=== PATIENT | female | born 1950 | race Two or more races ===

== ENCOUNTER → 2024-03-21 | Outpatient (CLI) | payer MEDICARE ==
--- NOTE | 2024-03-21 09:42 | XR ---
EXAMINATION TYPE: XR ribs LT w pa chest xray DATE OF EXAM: 03/21/2024 COMPARISON: NONE HISTORY: Pain TECHNIQUE: Single view of the chest 4 views of the ribs are submitted. FINDINGS: The lungs are clear. No Evidence for pneumothorax. No evidence for focal contusion. Medi astinal structures are midline. Evaluation of the ribs fails to demonstrate evidence for displaced r ib fracture or secondary sign of rib fracture. IMPRESSION: Negative study [facility], , 03/21/2024 9:40 AM
== END | disposition home or self-care (01) ==
LOC: RADXRMAIN 09:13
PROVIDERS: ATTEND Surgery
DX: Z85.3 Personal history of malignant neoplasm of breast

== ENCOUNTER → 2024-04-03 | Outpatient (CLI) | payer MEDICARE ==
--- NOTE | 2024-04-03 15:23 | NM ---
EXAMINATION TYPE: NM bone scan whole body DATE OF EXAM: 04/03/2024 2:43 PM CLINICAL INDICATION:Unknown, 74 years old with history of Z85.3 Hx breast ca; COMPARISON: None TECHNIQUE: Intravenous administration 27.1 mCi Tc 99m MDP followed by multiple scintigraphic images o f the appendicular and axial skeleton. Small [id number] planar legs, and thorax images were also s ubmitted for review. Images acquired 3 hours post injection. FINDINGS: No abnormal uptake is identified within the appendicular or axial skeleton to suggest metastatic dise ase. Urinary artifact at the near the pelvis. Injection artifact in the right arm. There is increased uptake within the bilateral shoulder, sternoclavicular, and sacroiliac joints con sistent with degenerative changes. No other photopenic areas or areas of increased activity are ident ified. Physiologic radiotracer activity is demonstrated in the kidneys and bladder. IMPRESSION: Nothing to suggest metastatic disease. [facility], , 04/03/2024 3:21 PM
== END | disposition home or self-care (01) ==
LOC: RADNMMAIN 07:49 → EDSEX 07:49
PROVIDERS: ATTEND Surgery
DX: Z85.3 Personal history of malignant neoplasm of breast (principal)
CPT/HCPCS: 78306